=== PATIENT | female | born 1925 | race Caucasian/White ===

== ENCOUNTER → 2016-11-05 | Day surgery (SDC) | payer OTHER ==
[2016-11-05 14:44] LABS: BASOPHIL 1.2 % (0-2.0); EOSINOPHIL 1.2 % (0-4.5); MCHC 33.5 g/dl (32.0-36.0); MEAN CELL VOLUME 92.5 fl (80-96); PLATELET COUNT 306 K/MM3 (134-434); RDW 12.6 % (11.6-15.6)
[2016-11-05 15:00] LABS: INR 1.01 (0.82-1.09); PROTHROMBIN TIME (PATIENT) 11.1 SEC (9.98-11.88)
== END | disposition home or self-care (01) ==
LOC: JRADIR 14:14
PROVIDERS: ATTEND Physical Medicine & Rehabilitation
PROC: 3E0U33Z Introduction of Anti-inflammatory into Joints, Percutaneous Approach (ICD-10-PCS; principal; 2016-11-05)
PROC: 3E0U3BZ Introduction of Anesthetic Agent into Joints, Percutaneous Approach (ICD-10-PCS; 2016-11-05)
DX: M25.551 Pain in right hip (principal)
CPT/HCPCS: 27093; 36415; 73525-TC; 76000-TC; 76098-TC; 85025; 85610; 87070; 87075; 87205; 87899